=== PATIENT | male | born 1975 | race Caucasian/White ===

== ENCOUNTER 2021-02-09 14:03 | Emergency (ER) | payer OTHER, SELFPAY ==
[2021-02-09 14:13] VITALS: BP 151/82; PULSE 65; RESP 40; TEMP 36.1; O2SAT 98
--- NOTE | 2021-02-09 14:19 | ECG_ITS ---
Measurements Intervals [place] Rate: P: IN: QRS: QRSD: T: QT: QTc: Interpretive Statements SINUS RHYTHM CANNOT RULE OUT SEPTAL INFARCT, AGE INDETERMINATE BORDERLINE T WAVE ABNORMALITY- INFERIOR LEADS BASELINE WANDER- AVR, AVL, V1-V3 ABNORMAL ECG Electronically Signed On 02-12-2021 14:33:12 [employer]ATION MANAGER by Alonzo Junior D.O.
--- NOTE | 2021-02-09 14:23 | ED.CHESTPAIN ---
HPI - Chest Pain General Chief Complaint: Chest Pain Stated Complaint: Chest Pain Time Seen by Provider: 02/09/21 14:10 Source: patient History of Present Illness HPI narrative: Patient presents to the emergency room with a 5-day history of chest pain and increasingly shortness of breath. Patient states it feels like it is midsternal crushing chest pain. Patient states it started when he was started get a basement 5 days ago. Patient states he has a history of cardiac problems and has had a cardiac cath about 10 years ago which showed a low ejection fracture. Patient states he has thyroid problems but does not take any medicines daily. Patient reports his father had his first heart attack at age 27 and has a strong family history of heart problems. Related Data Home Medications Medication Instructions Recorded Confirmed No Home Medications 02/09/21 02/09/21 Allergies Allergy/AdvReac Type Severity Reaction Status Date / Time No Known Allergies Allergy Verified 02/09/21 14:15 Review of Systems Review of Systems: CONSTITUTIONAL: Denies fever, chills, or sweats. EYES: Denies visual changes, redness, or discharge. ENT: Denies rhinorrhea, congestion, sore throat, or otalgia. CARDIOVASCULAR: Chest pain and shortness of breath RESPIRATORY: Denies cough or dyspnea. GASTROINTESTINAL: Denies abdominal pain, nausea, vomiting, or diarrhea. GENITOURINARY: Denies dysuria or hematuria. SKIN: Denies rash or itching. MUSCULOSKELETAL: Denies back pain, joint pain, or myalgia. NEUROLOGIC: Denies headache, numbness, or weakness. PSYCHIATRIC: Denies anxiety or depression. PMFSH Comments At time of signature, agree with nursing past medical, surgical, social and family history. There is no relevant family history pertinent to the presenting complaint Exam Narrative: GENERAL: Well-appearing, well-nourished, and in no acute distress. HEAD: Normocephalic, atraumatic. EYES: PERRLA and EOMI. ENT: Nares clear, no rhinorrhea or epistaxis. Mucous membranes moist. chest ; substernal chest pain and pressure short of breath at rest. NECK: Supple. Clear to auscultation. No respiratory distress. HEART: Regular rate and rhythm. No murmur heard. Normal peripheral pulses. ABDOMEN: Soft, nontender, nondistended, normal active bowel sounds. EXTREMITIES: Normal range of motion. No edema. SKIN: Warm, dry, no rash. NEURO: No focal deficits. Alert and oriented x3. [place] Coma Scale Eye Opening: Spontaneous 4 Ga Coma Scale Motor: Obeys Commands 6 Ga Coma Scale Verbal: Oriented 5 [place] Coma Scale Total 15 Course Vital Signs Vital signs: discussed EKG with patient and discussed strong family history of cardiac disease. patient agreeable to transfer to [facility] by ambulance. Transfer Transfered to: [facility] Transportation: ALS Transfer rationale: Chest pain and shortness of breath higher level of care cardiac history and strong family history of cardiac disease Accepting physician: Dr. Ricks Transfer comments: copy of ekg faxed to [facility] - Chest Pain Differential Diagnosis Differential diagnosis: Likely fracture of rib, pneumothorax, stable angina and other (chest pain dyspnea) Critical Care Time Critical Care Time Critical Care Time: No Discharge Plan Discharge Clinical Impression: Chest pain, Dyspnea Patient Disposition: Acute Care Hospital Condition: Stable Instructions: Antibiotic Form Prescriptions: No Action No Home Medications RF: 0 Follow-up/Referrals: PHYSICIAN,CARPET MEASURER [Primary Care Provider] -
[2021-02-09] MEDS: ASPIRIN 81 MG CHEWABLE TABLET 324 MG PO (14:55)
== END 2021-02-09 14:19 | disposition short-term general hospital (02) ==
PROVIDERS: Emergency Provider Nurse Practitioner Family
DX: R07.9 Chest pain, unspecified (principal); R06.00 Dyspnea, unspecified; R94.31 Abnormal electrocardiogram [ECG] [EKG]
CPT/HCPCS: 93005; 99215; A9270; G0463